=== PATIENT | male | born 1940 | race Caucasian/White ===

== ENCOUNTER 2022-03-28 13:37 | Emergency (ER) | payer OTHER ==
[2022-03-28] MEDS ORDERED: DIPHTH,PERTUSS(ACELL),TET 0.5 ML DISP.SYRIN IM ONE ×2 (14:21→14:29)
[2022-03-28 14:38] VITALS: PULSE 66; RESP 18; TEMP 98; BMI 27.1
[2022-03-28 15:40] VITALS: BP 145/70
== END 2022-03-28 15:42 | disposition home or self-care (01) ==
LOC: FER 13:37
PROC: 3E0234Z Introduction of Serum, Toxoid and Vaccine into Muscle, Percutaneous Approach (ICD-10-PCS; principal; 2022-03-28)
DX: S09.90XA Unspecified injury of head, initial encounter (principal); S80.212A Abrasion, left knee, initial encounter; W01.198A Fall on same level from slipping, tripping and stumbling with subsequent striking against other object, initial encounter
CPT/HCPCS: 70450-TC; 90471; 90715; 99284-25

== ENCOUNTER 2022-05-02 10:46 | Emergency (ER) | payer OTHER ==
[2022-05-02 11:12] VITALS: RESP 16; TEMP 99.2; BMI 24.5
[2022-05-02 13:03] VITALS: BP 141/89; PULSE 75
== END 2022-05-02 13:06 | disposition home or self-care (01) ==
LOC: FER 10:46
DX: M17.12 Unilateral primary osteoarthritis, left knee (principal); R60.0 Localized edema
CPT/HCPCS: 73560-TC-LT-FY; 93971-TC; 99284-25

== ENCOUNTER 2022-10-30 14:15 | Emergency (ER) | payer OTHER ==
[2022-10-30 14:34] VITALS: BP 149/79; PULSE 70; RESP 18; TEMP 98; BMI 24.4
[2022-10-30 15:32] LABS: HEMATOCRIT 40.5 % (35.4-49); HEMOGLOBIN 13.6 G/dL (11.7-16.9); MCH 32.3 pg (25.7-33.7); MCHC 33.6 g/dl (32.0-35.9); MEAN CELL VOLUME 95.9 fl (80-96); MEAN PLT VOLUME 8.9 fl (7.5-11.1); PLATELET COUNT 179.3 10^3/uL (134-434); RBC 4.22 10^6/uL (4.00-5.60); RDW 14.9 % (11.9-15.9); WHITE BLOOD COUNT 9.8 10^3/uL (4.0-10.8)
[2022-10-30 15:34] LABS: PLATELET ESTIMATE ADEQUATE
[2022-10-30 15:40] LABS: BILIRUBIN,TOTAL 1.1 mg/dl (0.2-1); CALCIUM 9.3 mg/dl (8.5-10); CREATININE 0.8 mg/dl (0.55-1.3); URIC ACID 4.9 mg/dl (2.6-7.2)
== END 2022-10-30 16:29 | disposition home or self-care (01) ==
LOC: FER 14:15
DX: M19.041 Primary osteoarthritis, right hand (principal)
CPT/HCPCS: 36415; 73130-TC-RT-FY; 80053; 84550; 85027; 99284-25

== ENCOUNTER 2023-07-09 14:10 | Emergency (ER) | payer OTHER ==
[2023-07-09 14:50] VITALS: BP 140/90; PULSE 74; RESP 18; TEMP 98; BMI 24.3
[2023-07-09] MEDS ORDERED: CEFTRIAXONE 1,000 MG in DEXTROSE 5%-WATER - 50 ML IVPB ONE (15:18)
[2023-07-09 15:41] LABS: EPITHELIAL CELLS 0-5 /hpf
[2023-07-09] MEDS ORDERED: cefTRIAXone SODIUM 1 GM VIAL ONE (15:47)
[2023-07-09 16:18] LABS: HEMATOCRIT 40.2 % (35.4-49); HEMOGLOBIN 13.1 G/dL (11.7-16.9); MCH 30.2 pg (25.7-33.7); MCHC 32.5 g/dl (32.0-35.9); MEAN CELL VOLUME 93.1 fl (80-96); MEAN PLT VOLUME 8.7 fl (7.5-11.1); PLATELET COUNT 253.2 10^3/uL (134-434); RBC 4.32 10^6/uL (4.00-5.60); RDW 15.6 % (11.9-15.9); WHITE BLOOD COUNT 7.5 10^3/uL (4.0-10.8)
[2023-07-09 16:25] LABS: INR 1.23 (0.83-1.09); PROTHROMBIN TIME (PATIENT) 14.2 SEC (9.7-13.0)
[2023-07-09 16:28] LABS: ACTIVATED PTT 34.1 SECONDS (25.2-36.5)
[2023-07-09 16:41] LABS: ALBUMIN 4.3 g/dl (3.4-5.0); CALCIUM 9.7 mg/dl (8.5-10.1); CREATININE 0.8 mg/dl (0.6-1.3); POTASSIUM 4.9 mmol/L (3.5-5.1); TOT PROT 7.4 g/dl (6.4-8.2)
[2023-07-09 16:44] LABS: PLATELET ESTIMATE ADEQUATE
== END 2023-07-09 17:47 | disposition home or self-care (01) ==
LOC: FER 14:10
DX: N30.91 Cystitis, unspecified with hematuria (principal)
CPT/HCPCS: 36415; 80053; 81003; 81015; 85027; 85610; 85730; 87086; 99284-25

== ENCOUNTER 2023-10-09 07:28 | Emergency (ER) | payer OTHER ==
[2023-10-09 07:48] VITALS: BP 150/77; PULSE 54; RESP 18; TEMP 98.4; BMI 24.3
[2023-10-09 08:47] LABS: INR 1.16 (0.83-1.09); PROTHROMBIN TIME (PATIENT) 13.4 SEC (9.7-13.0)
[2023-10-09 08:50] LABS: ACTIVATED PTT 33.2 SECONDS (25.2-36.5)
[2023-10-09 08:52] LABS: HEMATOCRIT 39.1 % (35.4-49); HEMOGLOBIN 12.6 G/dL (11.7-16.9); MCH 29.8 pg (25.7-33.7); MCHC 32.3 g/dl (32.0-35.9); MEAN CELL VOLUME 92.2 fl (80-96); MEAN PLT VOLUME 8.7 fl (7.5-11.1); PLATELET COUNT 231.1 10^3/uL (134-434); RBC 4.24 10^6/uL (4.00-5.60); RDW 15.8 % (11.9-15.9); WHITE BLOOD COUNT 5.3 10^3/uL (4.0-10.8)
[2023-10-09 09:10] LABS: ALBUMIN 4.3 g/dl (3.4-5.0); BILIRUBIN,TOTAL 0.7 mg/dl (0.2-1); CALCIUM 9.7 mg/dl (8.5-10.1); CREATININE 0.9 mg/dl (0.6-1.3); POTASSIUM 4.4 mmol/L (3.5-5.1); TOT PROT 7.3 g/dl (6.4-8.2)
[2023-10-09 09:18] LABS: PLATELET ESTIMATE ADEQUATE
== END 2023-10-09 09:46 | disposition home or self-care (01) ==
LOC: FER 07:28
DX: K62.5 Hemorrhage of anus and rectum (principal); R31.0 Gross hematuria
CPT/HCPCS: 36415; 80053; 81003; 81015; 85027; 85610; 85730; 86850; 86900; 86901; 93005; 99284-25

== ENCOUNTER 2023-12-09 11:11 | Emergency (ER) | payer OTHER ==
[2023-12-09 11:45] VITALS: BP 159/76; PULSE 67; RESP 19; TEMP 97.9; BMI 24.1
[2023-12-09] MEDS ORDERED: ONDANSETRON 4 MG/2 ML VIAL ONE (12:13)
[2023-12-09] MEDS: SODIUM CHLORIDE 0.9% 1000 ML INFUS.BAG IV ONE (12:15)
[2023-12-09] MEDS: ONDANSETRON 4 MG/2 ML VIAL IVPUSH ONE (12:20)
[2023-12-09 12:43] LABS: HEMOGLOBIN 12.5 G/dL (11.7-16.9); MCH 29.4 pg (25.7-33.7); MEAN CELL VOLUME 91.7 fl (80-96); MEAN PLT VOLUME 7.7 fl (7.5-11.1); PLATELET COUNT 267.9 10^3/uL (134-434); RBC 4.25 10^6/uL (4.00-5.60); RDW 16.2 % (11.9-15.9); WHITE BLOOD COUNT 6.2 10^3/uL (4.0-10.8)
[2023-12-09 12:58] LABS: ALBUMIN 4.1 g/dl (3.4-5.0); ALK PHOS 54 U/L (45-117); ANION GAP 8 mmol/L (4-13); BILIRUBIN,TOTAL 0.9 mg/dl (0.2-1); CALCIUM 9.7 mg/dl (8.5-10.1); CHLORIDE 98 mmol/L (98-107); CO2 29 mmol/L (21-32); CREATININE 0.8 mg/dl (0.6-1.3); GLUCOSE,RANDOM 101 mg/dl (74-106); POTASSIUM 4.2 mmol/L (3.5-5.1); SGOT/AST 31 U/L (15-37); SGPT/ALT 28 U/L (7-52); SODIUM 135 mmol/L (136-145)
[2023-12-09 13:42] LABS: PLATELET ESTIMATE ADEQUATE
== END 2023-12-09 13:53 | disposition home or self-care (01) ==
LOC: SUPCPDRO 11:11 → FER 11:11
PROC: 3E033GC Introduction of Other Therapeutic Substance into Peripheral Vein, Percutaneous Approach (ICD-10-PCS; principal; 2023-12-09)
DX: K59.00 Constipation, unspecified (principal); R19.7 Diarrhea, unspecified
CPT/HCPCS: 36415; 74018-TC-FY; 80053; 85027; 99284-25

== ENCOUNTER 2024-08-17 10:39 | Inpatient (IN) | payer OTHER ==
[2024-08-17] MEDS ORDERED: methylPREDNISolone NA SUCC 125 MG/2 ML VIAL ONE (11:27)
[2024-08-17] MEDS ORDERED: ALBUTEROL SO4 2.5/IPRATROPIUM 0.5 INH SOL 3 ML VIAL.NEB. NEB ONE (11:27)
[2024-08-17] MEDS: ALBUTEROL SO4 2.5/IPRATROPIUM 0.5 INH SOL 3 ML VIAL.NEB. NEB SCH ×2 (11:40→21:04)
[2024-08-17] MEDS: methylPREDNISolone NA SUCC 125 MG/2 ML VIAL IVPUSH ONE (11:50)
[2024-08-17 12:19] LABS: HEMOGLOBIN 11.8 G/dL (11.7-16.9); MCH 29.9 pg (25.7-33.7); MCHC 32.8 g/dl (32.0-35.9); MEAN CELL VOLUME 91.2 fl (80-96); MEAN PLT VOLUME 8.7 fl (7.5-11.1); PLATELET COUNT 230.4 10^3/uL (134-434); RBC 3.95 10^6/uL (4.00-5.60); RDW 17.2 % (11.9-15.9); WHITE BLOOD COUNT 5.7 10^3/uL (4.0-10.8)
[2024-08-17 12:43] LABS: BILIRUBIN,TOTAL 0.7 mg/dl (0.2-1); CALCIUM 9.2 mg/dl (8.5-10.1); CREATININE 0.7 mg/dl (0.6-1.3); POTASSIUM 4.3 mmol/L (3.5-5.1); TOT PROT 6.9 g/dl (6.4-8.2)
[2024-08-17 13:20] LABS: VENOUS BASE EXCESS 5.4 mmol/L (-2-2); VENOUS O2 SATURATION 36.2 % (70-80); VENOUS PCO2 55.2 mmHg (38-52); VENOUS PH 7.377 (7.310-7.410)
[2024-08-17] MEDS ORDERED: AZITHROMYCIN 500 MG VIAL IVPB ONE (13:37)
[2024-08-17] MEDS ORDERED: cefTRIAXone SODIUM 1 GM VIAL ONE (13:37)
[2024-08-17] MEDS: CEFTRIAXONE 1 GM in DEXTROSE 5%-WATER - 100 ML IVPB ONE (13:40)
[2024-08-17] MEDS: AZITHROMYCIN IVPB 500 MG in DEXTROSE 5%-WATER - 250 ML IVPB ONE (14:05)
[2024-08-17 14:32] LABS: ANISOCYTOSIS 1+
[2024-08-17 14:33] LABS: OVALOCYTE FEW
[2024-08-17] MEDS ORDERED: ACETAMINOPHEN 1000 MG/100 ML BAG IVPB PRN (16:50)
[2024-08-17 18:41] VITALS: BMI 25.3
[2024-08-17] MEDS: methylPREDNISolone NA SUCC 40 MG/1 ML VIAL IVPUSH SCH (18:59)
[2024-08-17] MEDS: APIXABAN 5 MG TABLET PO SCH (21:04)
[2024-08-18 08:32] LABS: ALBUMIN 3.6 g/dl (3.4-5.0); BILIRUBIN,TOTAL 0.6 mg/dl (0.2-1); CALCIUM 8.8 mg/dl (8.5-10.1); CREATININE 0.7 mg/dl (0.6-1.3); MAGNESIUM 2.1 mg/dL (1.8-2.4); PHOSPHOROUS 3.2 (2.5-4.9); POTASSIUM 4.1 mmol/L (3.5-5.1); TOT PROT 6.4 g/dl (6.4-8.2)
[2024-08-18] MEDS: CEFTRIAXONE 1 G/50 ML PREMIX 50 ML IVPB SCH (10:04)
[2024-08-18] MEDS: AZITHROMYCIN IVPB 500 MG/250 ML BAG IVPB SCH (10:06)
[2024-08-18 10:25] LABS: N-TERMINAL BNP 1143.4 pg/ml (5-450)
[2024-08-18 10:28] LABS: BASO % 0.1 % (0-2.0); HEMATOCRIT 31.1 % (35.4-49); HEMOGLOBIN 10.5 GM/dL (11.7-16.9); LYMPH % 16.8 % (8-40); MCH 29.4 pg (25.7-33.7); MCHC 33.8 g/dl (32.0-35.9); MEAN PLT VOLUME 8.2 fl (7.5-11.1); MONO % 3.4 % (3.8-10.2); NEUT % 79.7 % (42.8-82.8); PLATELET COUNT 219 10^3/uL (134-434); RBC 3.58 M/mm3 (4.00-5.60); RDW 15.3 % (11.9-15.9); WHITE BLOOD COUNT 3.1 K/mm3 (4.0-10.0)
[2024-08-18 12:00] LABS: HEMATOCRIT 34.5 % (35.4-49); HEMOGLOBIN 11.1 G/dL (11.7-16.9); MCH 29.1 pg (25.7-33.7); MCHC 32.1 g/dl (32.0-35.9); MEAN CELL VOLUME 90.9 fl (80-96); MEAN PLT VOLUME 8.4 fl (7.5-11.1); PLATELET COUNT 216.8 10^3/uL (134-434); RDW 16.8 % (11.9-15.9); WHITE BLOOD COUNT 4.7 10^3/uL (4.0-10.8)
[2024-08-18] MEDS: LACTOBACILLUS ACIDOPHILUS 1 TABLET PO SCH (17:45)
[2024-08-18] MEDS: FLUTICASONE/UMECLIDIN/VILANTER(100-62.5-25 TRELEGY ELLIPTA) INAHLER IH SCH (17:46)
[2024-08-18] MEDS: LEVALBUTEROL HCL 0.63 MG/3 ML VIAL.NEB. IH SCH (22:34)
[2024-08-18] MEDS: ATORVASTATIN CA 20 MG TABLET (FP) PO SCH (22:34)
[2024-08-18] MEDS: POLYETHYLENE GLYCOL (HEALTHYLAX) 3350 17 GM PACKET PO SCH (22:34)
[2024-08-19] MEDS: TAMSULOSIN HCL 0.4 MG CAP PO SCH (08:30)
[2024-08-19 08:37] LABS: ALBUMIN 3.9 g/dl (3.4-5.0); BILIRUBIN,TOTAL 0.5 mg/dl (0.2-1); CALCIUM 8.9 mg/dl (8.5-10.1); CREATININE 0.6 mg/dl (0.6-1.3); TOT PROT 6.8 g/dl (6.4-8.2)
[2024-08-19] MEDS: FUROSEMIDE 40 MG/4 ML INJECTABLE VIAL IVPUSH SCH (09:22)
[2024-08-19 09:42] LABS: HEMATOCRIT 34.3 % (35.4-49); HEMOGLOBIN 11.4 GM/dL (11.7-16.9); MCH 29.1 pg (25.7-33.7); MCHC 33.2 g/dl (32.0-35.9); MEAN CELL VOLUME 87.7 fl (80-96); MEAN PLT VOLUME 8.4 fl (7.5-11.1); PLATELET COUNT 221 10^3/uL (134-434); RBC 3.91 M/mm3 (4.00-5.60); RDW 15.5 % (11.9-15.9); WHITE BLOOD COUNT 5.6 K/mm3 (4.0-10.0)
[2024-08-19 09:58] LABS: LYMPH % 8.4 % (8-40); NEUT % 85.6 % (42.8-82.8)
[2024-08-19] MEDS: metoPROLOL SUCCINATE 25 MG TAB.SR.24H (FP) PO SCH (11:18)
[2024-08-20 06:47] VITALS: TEMP 98.1
[2024-08-20 08:58] LABS: HEMOGLOBIN 11.8 G/dL (11.7-16.9); MCH 29.9 pg (25.7-33.7); MCHC 32.8 g/dl (32.0-35.9); MEAN CELL VOLUME 91.3 fl (80-96); MEAN PLT VOLUME 9.2 fl (7.5-11.1); RBC 3.94 10^6/uL (4.00-5.60); RDW 16.6 % (11.9-15.9); WHITE BLOOD COUNT 5.8 10^3/uL (4.0-10.8)
[2024-08-20 09:47] LABS: ANISOCYTOSIS 1+; OVALOCYTE 1+; PLATELET ESTIMATE ADEQUATE
[2024-08-20 10:08] LABS: ALBUMIN 3.7 g/dl (3.4-5.0); BILIRUBIN,TOTAL 0.6 mg/dl (0.2-1); CREATININE 0.7 mg/dl (0.6-1.3); POTASSIUM 4.2 mmol/L (3.5-5.1); TOT PROT 6.3 g/dl (6.4-8.2)
[2024-08-20 10:10] VITALS: BP 132/84; PULSE 63; RESP 18
== END 2024-08-20 10:45 | disposition home or self-care (01) | DRG 193 ==
LOC: FER 10:39 → OBSVTOIN 13:32 → FM/S 13:32
DX: J18.9 Pneumonia, unspecified organism (principal); I50.33 Acute on chronic diastolic (congestive) heart failure; J45.901 Unspecified asthma with (acute) exacerbation; I24.89 Other forms of acute ischemic heart disease; J44.0 Chronic obstructive pulmonary disease with (acute) lower respiratory infection; I11.0 Hypertensive heart disease with heart failure; I48.91 Unspecified atrial fibrillation; E78.5 Hyperlipidemia, unspecified; M10.9 Gout, unspecified; S80.11XA Contusion of right lower leg, initial encounter; W19.XXXA Unspecified fall, initial encounter; Y93.89 Activity, other specified; Y92.89 Other specified places as the place of occurrence of the external cause; Y99.8 Other external cause status
CPT/HCPCS: 0241U-QW; 36415; 71046-TC-FY; 71250-TC; 80053; 81003; 81015; 82803; 82962; 83735; 83880; 84100; 84443; 84484; 85025; 85027; 87070; 87086; 87186; 87205; 87899; 93005; 93010; 93306-TC; 93971-TC; 94640; 97116-GP; 97162-GP; 99285-25